=== PATIENT | male | born 1960 | race Caucasian/White ===

== ENCOUNTER 2020-03-29 11:03 | Day surgery (SDC) | payer BC ==
[~2020-03-29] VITALS: Ht 177.8 cm; Wt 91.7 kg
[~2020-03-29 11:03] MED LIST: ATOR20 PO; Amaryl1 MG PO; KRILL OIL500 MG PO; METF500C PO; PRINIVIL10 MG PO; TRAM50 PO
== END 2020-03-29 13:46 | disposition home or self-care (01) ==
LOC: ORSCSDS 11:03
PROVIDERS: Student in an Organized Health Care Education/Training Program
PROC: 0DBK8ZX Excision of Ascending Colon, Via Natural or Artificial Opening Endoscopic, Diagnostic (ICD-10-PCS; principal; 2020-03-29 12:15)
PROC: 0DBL8ZX Excision of Transverse Colon, Via Natural or Artificial Opening Endoscopic, Diagnostic (ICD-10-PCS; principal; 2020-03-29 12:15)
PROC: 0DBN8ZX Excision of Sigmoid Colon, Via Natural or Artificial Opening Endoscopic, Diagnostic (ICD-10-PCS; principal; 2020-03-29 12:15)
PROC: 0DBH8ZX Excision of Cecum, Via Natural or Artificial Opening Endoscopic, Diagnostic (ICD-10-PCS; principal; 2020-03-29 12:15)
DX: K92.1 Melena (principal); D12.0 Benign neoplasm of cecum; D12.2 Benign neoplasm of ascending colon; D12.3 Benign neoplasm of transverse colon; K63.5 Polyp of colon; I10 Essential (primary) hypertension; E11.9 Type 2 diabetes mellitus without complications; Z87.891 Personal history of nicotine dependence; Z79.84 Long term (current) use of oral hypoglycemic drugs; Z79.899 Other long term (current) drug therapy
CPT/HCPCS: 82947; 88305; J2704; J7120

== ENCOUNTER 2021-02-23 07:07 | Day surgery (SDC) | payer BC ==
[~2021-02-23] VITALS: Ht 180.3 cm; Wt 96.0 kg
--- NOTE | 2021-02-23 09:21 | NUR ---
02/23/21 0921 Yoko Currie PT. VERBALZES TIP OF HIS TONGUE IS SORE. OBSERVED NO BITE NISH/WOUND AT THIS TIME WHEN PT. OPENED HIS MOUTH. PT. C/O SORE THROAT. PT. COUGHING UP SMALL AMT. RED BLOODY SECRETIONS, PT. SUCTIONED. REPORT GIVEN TO [email or web address].EXM & [email or web address].CB.
--- NOTE | 2021-02-23 09:30 | NUR ---
02/23/21 0930 Nima Martinez TRANEXAMICACID INFUSION STARTED PER ORDERS 1000MG
== END 2021-02-23 10:00 | disposition home or self-care (01) ==
LOC: ORSCSDS 07:07
PROVIDERS: Otolaryngology
PROC: 0CBPXZZ Excision of Tonsils, External Approach (ICD-10-PCS; principal; 2021-02-23 08:15)
DX: J35.01 Chronic tonsillitis (principal); G47.33 Obstructive sleep apnea (adult) (pediatric); E11.9 Type 2 diabetes mellitus without complications; I10 Essential (primary) hypertension; Z87.891 Personal history of nicotine dependence; Z79.84 Long term (current) use of oral hypoglycemic drugs; Z79.899 Other long term (current) drug therapy
CPT/HCPCS: 82947; 88304; A9270; J0330; J1100; J2250; J2405; J2704; J3010; J7120

== ENCOUNTER → 2025-05-04 | Outpatient (CLI) | payer BC ==
[2025-05-04 22:04] LABS: Microalbumin, Urine Quant. 10.8 mg/L (0.000-20.000); Protein, Urine Quantitative 6.3 mg/dL (0.0-11.9)
== END | disposition home or self-care (01) ==
LOC: LAB 05:00 → LAB SHORT 05:00 → LAB FUT 04-28 13:35
PROVIDERS: Internal Medicine Nephrology
DX: N18.30 Chronic kidney disease, stage 3 unspecified (principal); D63.1 Anemia in chronic kidney disease; N40.1 Benign prostatic hyperplasia with lower urinary tract symptoms; D51.8 Other vitamin B12 deficiency anemias; D52.8 Other folate deficiency anemias; D50.9 Iron deficiency anemia, unspecified; M10.9 Gout, unspecified; E83.30 Disorder of phosphorus metabolism, unspecified; E83.41 Hypermagnesemia; R76.9 Abnormal immunological finding in serum, unspecified; R94.5 Abnormal results of liver function studies; R94.6 Abnormal results of thyroid function studies
CPT/HCPCS: 81050; 82043; 82570; 84156